=== PATIENT | male | born 1975 | race American Indian/Alaskan Native ===

== ENCOUNTER 2018-01-10 09:49 | Emergency (ER) | payer OTHER ==
[2018-01-10] MEDS ORDERED: CATAPRES PO ONE ×2 (10:51→11:14)
[2018-01-10] MEDS ORDERED: CATAPRES ONE (11:14)
--- NOTE | 2018-01-10 11:16 | Emergency Department Report ---
HPI - General Chief Complaint: Medical Clearance Time Seen by Provider: 01/10/18 10:32 - HPI HPI: 42-year-old male presents to the emergency department with complaint of elevated blood pressure. The patient has a history of hypertension but was just started on Norvasc 5 mg about 1 month ago through a primary care physician at [place]. The patient woke up this morning and had elevated blood pressure of 156/106. He took his Norvasc 5 mg this morning but after rechecking his blood pressure went up to about 197/110. He then went to confirm the blood pressure reading at another machine at [facility] and he had a systolic of about 176 at that time. It previously been told by his primary care physician to go to the emergency department if he ever reached a blood pressure of 220/120. The patient did not want to wait until those exact number so he came in to be seen. He denies any headache, chest pain, shortness of breath, blurred vision. He has a recent and/or former tobacco smoker having quit about 4 days ago. Sometimes he does eat food with salt. He drinks about 5 or 6 pints of beer nightly. ED Past Medical Hx - Past Medical History Previous Medical History?: Yes Hx Hypertension: Yes - Surgical History Past Surgical History?: No - Social History Smoking Status: Former Smoker Substance Use Type: Alcohol ED Review of Systems ROS: Stated complaint: HBP Other details as noted in HPI Comment: All other systems reviewed and negative Constitutional: denies: chills, fever Eyes: denies: eye pain, eye discharge, vision change ENT: denies: ear pain, throat pain Respiratory: denies: cough, shortness of breath, wheezing Cardiovascular: denies: chest pain, palpitations Gastrointestinal: denies: abdominal pain, nausea, diarrhea Genitourinary: denies: urgency, dysuria Musculoskeletal: denies: back pain, joint swelling, arthralgia Skin: denies: rash, lesions Neurological: denies: headache, weakness Physical Exam - Physical Exam Vital Signs: Vital Signs 01/10/18 10:16 Temperature 98.5 F Pulse Rate 87 Respiratory 17 Rate Blood Pressure 144/86 O2 Sat by Pulse 100 Oximetry Physical Exam: GENERAL: The patient is well-developed well-nourished. HENT: Normocephalic. Atraumatic. Patient has moist mucous membranes. EYES: Extraocular motions are intact. Pupils equal reactive to light bilaterally. NECK: Supple. Trachea is midline. CHEST/LUNGS: Clear to auscultation. There is no respiratory distress noted. HEART/CARDIOVASCULAR: Regular. There is no tachycardia. There is no murmur. ABDOMEN: Abdomen is soft, nontender. Patient has normal bowel sounds. There is no abdominal distention. SKIN: Skin is warm and dry. NEURO: The patient is awake, alert, and oriented. The patient is cooperative. The patient has no focal neurologic deficits. The patient has normal speech and gait. MUSCULOSKELETAL: There is no tenderness or deformity. There is no limitation range of motion. There is no evidence of acute injury. ED Course Vital Signs 01/10/18 10:16 Temperature 98.5 F Pulse Rate 87 Respiratory 17 Rate Blood Pressure 144/86 O2 Sat by Pulse 100 Oximetry ED Medical Decision Making - Medical Decision Making Patient presented because he was having some fluctuating blood pressure readings this morning that ranged from systolic 150 up until almost 200. The patient has a prescription for 5 mg amlodipine but took a total of 10 mg prior to presentation. He does not appear to have any physical complaints related to his hypertension including no chest pain, shortness of breath, headache, vision change. Patient was given 0.1 of Catapres and reevaluated about 30-45 minutes afterwards and his blood pressure came down to about 130/90. The patient just recently quit smoking about 4 days ago. He admits to drinking 5-6 beers per night and sometimes eating salty food. We discussed dietary and lifestyle changes to make. He will keep a blood pressure log. He has an appointment with his primary care physician in 2 days. He will return to the ER with any worsening of symptoms or any acute distress. Critical Care Time: No Critical care attestation.: If time is entered above; I have spent that time in minutes in the direct care of this critically ill patient, excluding procedure time. ED Disposition Clinical Impression: Hypertension Qualifiers: Hypertension type: essential hypertension Qualified Code(s): I10 - Essential ( primary) hypertension Disposition: - TO HOME OR SELFCARE Is pt being admited?: No Condition: Stable Instructions: Hypertension (ED) Additional Instructions: Please follow-up with your primary care physician in the next few days as previously scheduled. Take your blood pressure medication as prescribed but as we discussed, if necessary, you can take a second 5 mg pill for a total of 10 mg in the day. Continue with your smoking cessation. Try and stay away from foods that are high in salt or caffeinated products. Keep a blood pressure log to show to your primary care physician. Return to the emergency Department with any worsening of her symptoms, development of chest pain, shortness of breath, vision change or any acute distress. Referrals: PRIMARY CARE, [Primary Care Provider] - [facility] Time of Disposition: 11:57
[2018-01-10 11:51] VITALS: BP 130/91
== END 2018-01-10 12:02 | disposition home or self-care (01) ==
LOC: ED 09:49
DX: I10 Essential (primary) hypertension (principal); Z87.891 Personal history of nicotine dependence
CPT/HCPCS: 99282